=== PATIENT | female | born 1980 | race Caucasian/White ===

== ENCOUNTER 2018-04-04 07:27 | Day surgery (SDC) | payer OTHER ==
[2018-04-04] MEDS ORDERED: GABAPENTIN 300 MG CAP PO ONE (07:58)
[2018-04-04] MEDS ORDERED: PHENAZOPYRIDINE HCL 200 MG TAB PO ONE (07:58)
[2018-04-04] MEDS ORDERED: ceFAZolin 2 GM/DEXTROSE 100 ML IV ONE (07:58)
[2018-04-04] MEDS ORDERED: ACETAMINOPHEN 500 MG TAB PO ONE (07:58)
[2018-04-04] MEDS ORDERED: LIDOCAINE 1% 2 ML INJ ID PRN (08:00)
[2018-04-04] MEDS ORDERED: LR 1,000 ML IV ONE (08:00)
[2018-04-04] MEDS ORDERED: MIDAZOLAM 2 MG/2 ML VIAL IVP ONE (08:17)
--- NOTE | 2018-04-04 08:18 | PDANEPAE ---
ANE Past Medical History - Cardiovascular History Hx Hypertension: No Hx Arrhythmias: No Hx Chest Pain: No Hx Coronary Artery / Peripheral Vascular Disease: No Hx CHF / Valvular Disease: No Hx Palpitations: No - Pulmonary History Hx COPD: No Hx Asthma/Reactive Airway Disease: No Hx Recent Upper Respiratory Infection: No Hx Oxygen in Use at Home: No Hx Sleep Apnea: No Sleep Apnea Screening Result - Last Documented: Negative - Neurologic History Hx Cerebrovascular Accident: No Hx Seizures: No Hx Dementia: No - Endocrine History Hx Diabetes: No Hypothyroid: No Hyperthyroid: No Obesity: no - Renal History Hx Renal Disorders: No - Liver History Hx Hepatic Disorders: No - Cancer History Hx Cancer: No - Congenital Disorder History Hx Congenital Disorders: No - GI History GERD: no Hx Gastrointestinal Disorders: No - Other Health History Other Health History: endometriosis - Chronic Pain History Chronic Pain: Yes (lower back) - Surgical History Prior Surgeries: 2014. D&C with anesthesia ANE Review of Systems Review of Systems: - Exercise capacity Exercise capacity: >=4 METS METS (RN): 4 METS ANE Patient History - Allergies Allergies/Adverse Reactions: droperidol [From Inapsine] Allergy (Verified 04/04/18 08:26) Other-Enter Comments - Home Medications Home Medications: Cholecalciferol (Vitamin D3) 04/03/18 [Last Taken 04/02/18] Co Q-10 04/03/18 [Last Taken 04/02/18] Fish Oil 1000 mg (*) 04/03/18 [Last Taken 04/02/18] Magnesium 04/03/18 [Last Taken 04/02/18] Multivitamin 04/03/18 [Last Taken 04/02/18] - Anes Hx Anes Hx: post operative nausea and vomiting - Smoking Hx Smoking Status: Never smoked Marijuana use: No - Alcohol Use Alcohol Use: Occasionally - Family Anes Hx Family Anes Hx: neg - N/A Family Hx Anesthesia Complications: mother has similar issues ANE Labs/Vital Signs - Vital Signs Height: 187.96 cm Weight: 88.451 kg ANE Physical Exam - Airway Neck exam: FROM Mallampati Score: Class 2 Mouth exam: normal dental/mouth exam - Pulmonary Pulmonary: no respiratory distress, no rales or rhonchi, clear to auscultation - Cardiovascular Cardiovascular: regular rate and rhythym, no murmur, rub, or gallop - ASA Status ASA Status: I ANE Anesthesia Plan Anesthesia Plan: general endotracheal anesthesia Total IV Anesthesia: No
--- NOTE | 2018-04-04 09:08 | PDHPUP ---
History & Physical Update H&P update statement: This history and physical update is based on an assessment of the patient which was completed after admission or registration (within 24 hours), but prior to the surgery/procedure. H&P update: H&P reviewed & patient examined, no change in patient's condition since H&P completed
[2018-04-04] MEDS ORDERED: SCOPOLAMINE HYDROBROMIDE 1 MG/3 DAYS PATCH TD ONE (09:40)
[2018-04-04] MEDS ORDERED: PROPOFOL 200 MG/20 ML VIAL ONE (09:43)
[2018-04-04] MEDS ORDERED: fentaNYL 100 MCG/2 ML INJ ONE (09:43)
[2018-04-04] MEDS ORDERED: ROCURONIUM 50 MG/5 ML VIAL ONE (09:44)
[2018-04-04] MEDS ORDERED: SCOPOLAMINE HYDROBROMIDE 1 MG/3 DAYS PATCH TD SCH (09:45)
[2018-04-04] MEDS ORDERED: ONDANSETRON 4 MG/2 ML VIAL ONE (09:45)
[2018-04-04] MEDS ORDERED: LIDOCAINE 2% 5 ML SDV ONE (09:46)
[2018-04-04] MEDS ORDERED: KETOROLAC 30 MG/1 ML SDV ONE (09:46)
[2018-04-04] MEDS ORDERED: DEXAMETHASONE 4 MG/ML VIAL ONE (09:46)
[2018-04-04] MEDS ORDERED: ONDANSETRON 4 MG/2 ML VIAL IVP PRN (10:21)
[2018-04-04] MEDS ORDERED: HYDROCODONE/APAP 5/325 TAB PO PRN (10:21)
[2018-04-04] MEDS ORDERED: oxyCODONE IR 5 MG TAB PO PRN (10:21)
[2018-04-04] MEDS ORDERED: NALOXONE HCL 0.4 MG/ML INJ IVP PRN (10:21)
[2018-04-04] MEDS ORDERED: PHENYLEPHRINE HCL 100 MCG/ML SYR IVP PRN (10:21)
[2018-04-04] MEDS ORDERED: PROMETHAZINE HCL 25 MG/ML INJ IVP PRN (10:21)
[2018-04-04] MEDS ORDERED: LR 500 ML IV PRN (10:21)
[2018-04-04] MEDS ORDERED: fentaNYL 100 MCG/2 ML INJ IVP PRN (10:21)
[2018-04-04] MEDS ORDERED: MEPERIDINE 25 MG/0.5 ML AMP IVP PRN (10:21)
[2018-04-04] MEDS ORDERED: GLYCOPYRROLATE 0.2 MG/1 ML VIAL ONE ×2 (10:57)
--- NOTE | 2018-04-04 11:33 | POSTOPPROG ---
Post Op Note Date of Operation: 04/04/18 Surgeon: Cheikh Albarado Tibco Developer: Karla Anderson Anesthesia: GET(General Endotracheal) Pre-op Diagnosis: Endometriosis Post-op Diagnosis: Same Procedure: Robotic excision of endo, bilat ureterolysis and ovarian pexy Findings: Endo Inf/Abcess present in the surg proc area at time of surgery?: No EBL: Minimal Complications: None
--- NOTE | 2018-04-04 12:01 | GOP ---
[f rep st] OPERATIVE REPORT DATE OF OPERATION: 04/04/2018 SURGEON: Cheikh Albarado MD [employer] MANAGER: Karla Anderson CFA. ANESTHESIA: General. PREOPERATIVE DIAGNOSIS: 1. Endometriosis. 2. Midcycle pain. POSTOPERATIVE DIAGNOSIS: 1. Endometriosis. 2. Midcycle pain. PROCEDURE PERFORMED: 1. Robotic excision of endometriosis in anterior, posterior cul-de-sacs, bilateral pelvic side jorge . 2. Bilateral ureterolysis. 3. Bilateral ovariopexy. FINDINGS: SPECIMENS: Pelvic peritoneum with endometriosis. ESTIMATED BLOOD LOSS: Scant. DESCRIPTION OF PROCEDURE: The patient was taken to the operating room where she was identified. Gen eral anesthesia was administered and found to be adequate. She was placed in the lithotomy position and prepared and draped in normal sterile fashion. A Martinez catheter was placed in her bladder. A Hu [place] tenaculum was placed in the uterus for manipulation. A 1 cm infraumbilical incision was made with a scalpel. The Veress needle with the CO2 gas flowing w as advanced into the peritoneal cavity. The abdomen was then insufflated with carbon dioxide gas. T he 12 mm trocar, followed by the laparoscope were then inserted. The upper abdomen was unremarkable. There was no evidence of endometriosis on either diaphragm, liver, stomach, gallbladder, or upper a bdominal bowel. Two lateral ports were placed in the right, 1 on the left under direct visualization . She then was placed in Trendelenburg position and the da Alba robot docked on the left side. The instruments were then brought into the abdominal cavity under direct visualization. She had endometriosis in the anterior and posterior cul-de-sacs, as well as both pelvic sidewalls, an d along both uterosacral ligaments. The anterior cul-de-sac peritoneum was excised. There were luis ral small lesions on the each ovary, which were treated. A bilateral ovariopexy was then performed d ue to the midcycle pain. The ovaries were attached to the ipsilateral round ligaments near the inter nal inguinal ring with 3-0 Vicryl Rapide suture. The entire posterior cul-de-sac peritoneum from the distal rectum up to the cervix and laterally to the uterosacral ligaments was then completely excise d. The patient required a bilateral ureterolysis due the endometriosis overlying both ureters. The peritoneum at the pelvic brims was incised. The ureters were gently dissected free and lateralized o ff the overlying peritoneum and endometriosis from the pelvic brim all the way down to the uterine ar teries. Once this was accomplished, the entire ovarian fossa peritoneum was completely excised. The pelvis was then irrigated with sterile saline. Hemostasis was present. The robot was then undoc ked. The fascia was closed with 0 Vicryl, skin with 4-0 Monocryl. Anesthesia was reversed, and the patient taken to the PACU awake, in stable condition. COMPLICATIONS: None. DISPOSITION: Patient stable to PACU. /[id number]/MODL
--- NOTE | 2018-04-04 12:23 | POSTANESTH ---
Post Anesthetic Evaluation Cardiovascular Status: Normal, Stable Respiratory Status: Normal, Stable Level of Consciousness/Mental Status: Can Participate in Eval Pain Control: Adequate, Prn Tx Ordered Nausea/Vomiting Control: Adequate, Prn Tx Ordered Complications Possibly Related to Anesthesia: None Noted
[2018-04-04 12:27] VITALS: BP 116/81
[2018-04-07] MEDS ORDERED: PATCH REMOVAL 1 EA PATCH TD SCH (09:41)
== END 2018-04-04 13:15 | disposition home or self-care (01) ==
LOC: FSGY 07:27
PROVIDERS: ATTEND Obstetrics & Gynecology
DX: N80.3 Endometriosis of pelvic peritoneum (principal); N94.9 Unspecified condition associated with female genital organs and menstrual cycle; R14.0 Abdominal distension (gaseous); N94.6 Dysmenorrhea, unspecified; N96 Recurrent pregnancy loss
CPT/HCPCS: J0690; J1100; J1885; J2250; J2405; J2704; J3010